=== PATIENT | female | born 1940 | race Caucasian/White ===

== ENCOUNTER 2018-07-08 18:17 | Observation (INO) ==
--- NOTE | 2018-07-08 18:24 | Emergency Department Note ---
Disposition Clinical Impression: Gastroenteritis, Near syncope Disposition: Admitted As Inpatient Condition: Fair Nausea/Vomiting/Diarrhea HPI - General Chief complaint: ED Nausea/Vomiting/Diarrhea Stated complaint: vomiting Time Seen by Provider: 07/08/18 18:20 Source: patient, EMS Mode of arrival: EMS Limitations: no limitations Nursing Notes Reviewed: Yes Vital Signs Reviewed: Yes - History of Present Illness HPI Narrative: Patient relates she is been feeling sick for about a week. She is been having nausea vomiting with current dry heaving about 15 times today. She states symptoms seem to be worse at night. She has had decreased oral intake but has been trying take down some water. She states she has even thrown up with chicken soup. With the increased nausea tonight she states she is been sleeping poorly and has generalized fatigue. She is getting weakness and dizziness with standing and walking with her walker. She did have diarrhea but none in 2 days. She has not been passing blood or mucus. She denies abdominal pain other than soreness with vomiting and nausea. She has not had ill exposures. She denies cough or chest pain. She states she has chronic dyspnea with COPD but it is not increased. She is concerned that she has not been able to take her home medicines and with this her blood pressure is up a little bit. She is here for some of the symptoms on Tuesday, received IV fluids and has not been able to control her symptoms with "Reglan" at home. She was prescribed Phenergan on Tuesday. She did see her primary care provider for nausea this past Tuesday. She had the squad go to her house earlier today and decided not to come into the hospital. She called again and has been transported due to the persistence of symptoms. Pt Subjective Complaint: nausea, vomiting, diarrhea Onset (ago): week(s) (1) Description of emesis: food contents, bilious, other (Dry heaving) Number of episodes of emesis: 15 (Today) Description of Diarrhea: water (Resolved 2 days ago) Associated Abdominal Pain: Yes (Abdominal wall sore) If pain, Location of pain: diffuse Severity: mild, moderate Quality: aching Consistency: intermittent Improves with: nothing Worsens with: eating, vomiting Associated symptoms: Reports: loss of appetite, malaise, nausea/vomiting, shortness of breath (Normal with COPD), weakness. Denies: myalgias, chest pain, cough, diaphoresis, fever/chills, headaches, rash, dysuria, syncope - Related Data Home Medications Medication Instructions Recorded Confirmed Albuterol Sulfate [Proair Hfa] 2 puff IH Q4-6H PRN 07/14/15 07/08/18 Ezetimibe [Zetia] 10 mg PO DAILY 07/14/15 07/08/18 Lansoprazole [Prevacid] 30 mg PO BID 07/14/15 07/08/18 Pregabalin [Lyrica] 300 mg PO BID 07/14/15 07/08/18 Cyclobenzaprine HCl 5 mg PO TID PRN 01/29/16 07/08/18 Ergocalciferol (VITAMIN D2) 50,000 unit PO WE 01/29/16 07/08/18 [Vitamin D2 (50,000 UNIT)] Ipratropium/Albuterol Sulfate 1 puff IH BID 02/02/16 07/08/18 [Combivent Respimat Inhal [place]] Lisinopril [Zestril] 20 mg PO DAILY 05/05/16 07/08/18 Magnesium Oxide [Magnesium] 500 mg PO DAILY 05/05/16 07/08/18 Potassium Chloride [Klor-Con 20 meq PO DAILY 05/05/16 07/08/18 Sprinkle] Aspirin Enteric Coated [Aspirin EC] 81 mg PO DAILY 09/13/16 07/08/18 Dicyclomine [Bentyl] 20 mg PO QID PRN 09/13/16 07/08/18 Fluticasone Propionate Nasal 50 mcg NS DAILY 09/13/16 07/08/18 [Flonase] HYDROcodone/Acet 7.5/325 mg [[place] 1 tab PO TID PRN 09/13/16 07/08/18 7.5-325 mg] Oxygen 2 l NS AD 09/13/16 07/08/18 Ranitidine HCl [Acid Otm Consultant] 75 mg PO BID 07/05/18 07/08/18 Sucralfate [Carafate] 1 gm PO QIDAC 07/05/18 07/08/18 Previous Rx's Medication Instructions Recorded LORazepam [Ativan] 1 mg PO TID #6 tablet 09/12/16 OxyCODONE/APAP 5/325 [Percocet 1 - 2 tab PO Q6HR PRN #40 tablet 09/12/16 5/325 MG] Benzonatate [Tessalon] 100 mg PO TID #20 capsule 05/08/17 Guaifenesin [Mucinex] 100 mg PO Q4H #20 gran.pack 05/08/17 Allergies Allergy/AdvReac Type Severity Reaction Status Date / Time methotrexate AdvReac Vomiting Verified 07/08/18 18:28 morphine AdvReac Vomiting Verified 07/08/18 18:28 ondansetron AdvReac Vomiting Verified 07/08/18 18:28 [From Zofran (as hydrochloride)] All systems ED: reviewed and negative except as stated. Past Medical History - Past Medical History Attestation: Yes The following information was validated with the patient. Source: patient, old records reviewed, obtained from family, nursing notes reviewed Medical history: Reports: arthritis, CHF, COPD, GERD, hyperlipidemia, hypertension, osteoporosis, RA, renal disease Surgical history: Reports: appendectomy, colectomy, colostomy, herniorrhaphy, hysterectomy, orthopedic, other (Lumbar) Psychiatric history: Reports: no psych history - Social History Smoking Status: Former smoker Smokeless Tobacco Status: No Alcohol use: Reports: none Drug use: Reports: none Physical Exam - General Limitations: no limitations General appearance: alert, in no apparent distress - Head Head exam: atraumatic - Eye Eye exam: Present: normal appearance, PERRL, EOMI. Absent: conjunctival injection - ENT ENT exam: normal exam, normal oropharynx, mucous membranes moist - Neck Neck exam: Present: normal inspection, full ROM, trachea midline. Absent: tenderness, meningismus, lymphadenopathy - Chest Chest inspection: Present: normal inspection, symmetric chest wall rise - Respiratory Respiratory exam: Present: normal lung sounds bilaterally. Absent: respiratory distress, wheezes, prolonged expiratory phase - Cardiovascular Cardiovascular exam: Present: regular rate, normal rhythm, tachycardia, normal heart sounds - Abdominal Exam Abdominal exam: Present: soft, normal bowel sounds. Absent: distention, guarding, rebound, rigidity, hyperactive bowel sounds, Villagran's sign, tenderness at McBurney's Point Abdominal tenderness: Present: diffuse, mild - Extremities Exam Extremities exam: Present: normal inspection, full ROM, normal capillary refill. Absent: tenderness, pedal edema, calf tenderness - Expanded Lower Extremity Exam Neurovascular/Tendon exam: Present: normal capillary refill Gait: not tested/not observed - Back Exam Back exam: Present: normal inspection, full ROM. Absent: tenderness, CVA tenderness (R), CVA tenderness (L) - Neurological Exam Neurological exam: Present: alert, oriented X3 - Psychiatric Psychiatric exam: Present: normal affect, anxious. Absent: agitated - Skin Skin exam: Present: warm, dry, intact, normal color. Absent: diaphoresis, pallor Course Course Narrative: Patient was evaluated immediately upon arrival. She is been written to receive IV fluids and, given allergy to Zofran, a dose of haloperidol and Benadryl IV for her severe nausea. Baseline laboratory has been ordered and she is advised that I would review her previous record prior to other testing. 1907: All testing is discussed with the patient and Dr. Dorsey. She is coordinated with verbal orders obtained for inpatient observation and hydration. Vital Signs Temperature 97.2 F L 07/08/18 18:18 Pulse Rate 105 07/08/18 18:18 Respiratory Rate 17 07/08/18 18:18 Blood Pressure 171/101 07/08/18 18:18 O2 Sat by Pulse Oximetry 93 07/08/18 18:18 Temperature 97.2 F L 07/08/18 18:18 Pulse Rate 105 07/08/18 19:11 Respiratory Rate 17 07/08/18 19:11 Blood Pressure 158/101 07/08/18 19:11 O2 Sat by Pulse Oximetry 94 07/08/18 19:11 Oxygen Delivery Oxygen Delivery Room Air Nausea/Vomiting/Diarrhea - Differential Diagnosis Likely: food poisoning, gastroenteritis, dehydration, bowel obstruction - Medical Records Medical records reviewed: Yes I reviewed the patient's medical records. Urinalysis, CBC and basic chemistry panel were normal on Tuesday. - Lab Data Lab results reviewed: Yes I reviewed the patient's lab results. Result diagrams: 07/08/18 18:36 07/08/18 18:36 Lab Results 07/08/18 07/08/18 07/08/18 Range/Units 18:36 18:36 18:36 WBC 8.6 D (4.3-11.1) K/mcL RBC 3.94 (3.82-4.97) M/mcL Hgb 12.5 (11.5-15.4) g/dL Hct 37.7 (35.3-44.9) % MCV 95.7 (83.0-100.0) fL MCH 31.7 (28.0-33.3) pg MCHC 33.2 (31.6-35.5) g/dL RDW 13.0 (11.5-14.5) % Plt Count 185 (140-400) K/mcL MPV 11.2 (9.4-12.4) fL Immature Gran % 0.2 (0-4) % Seg Neutrophils % 59.7 % Lymphocytes % 24.4 % Monocytes % 13.8 % Eosinophils % 1.3 % Basophils % 0.6 % Neutrophils # 5.1 (1.6-8.9) K/mcL Lymphocytes # 2.1 (0.6-4.6) K/mcL Monocytes # 1.2 (0.0-1.3) K/mcL Eosinophils # 0.1 (0.0-0.6) K/mcL Basophils # 0.1 (0.0-0.2) K/mcL Sodium 136 (136-145) mEq/L Potassium 3.8 (3.5-5.1) mEq/L Chloride 99 (98-107) mEq/L Carbon Dioxide 19 L (23-29) mEq/L BUN 16 (8-23) mg/dL Creatinine 0.97 (0.60-1.20) mg/dL Est GFR ( Amer) > 60 (> 60) Est GFR (Non-Af Amer) 56 L (> 60) BUN/Creatinine Ratio 16 (6-26) Glucose 86 (70-105) mg/dL Calculated Osmolality 282 (280-300) Calcium 9.6 (8.6-10.3) mg/dL Magnesium 1.6 (1.6-2.6) mg/dL Total Bilirubin 0.5 (0.3-1.0) mg/dL Direct Bilirubin 0.1 (0.0-0.2) mg/dL Indirect Bilirubin 0.4 (0.0-1.2) mg/dL AST 24 (13-39) Units/L ALT 16 (7-52) Units/L Alkaline Phosphatase 72 (34-104) Units/L Serum Total Protein 7.2 (6.4-8.9) g/dL Albumin 4.1 (3.5-5.7) g/dL Globulin 3.1 (2.4-3.5) g/dL Albumin/Globulin Ratio 1.3 (1.1-2.2) Amylase 41 (29-103) Units/L Lipase 83 H (11-82) Units/L - Radiology Data Radiology results reviewed: Yes I reviewed the patient's radiology results. Three-view abdominal series is performed. This is not demonstrate evidence for pulmonary blood trace, effusion or mass. Abdominal bowel gas pattern is nonspecific without abnormal calcification or obstruction. This is on my interpretation. Impressions Chest/Abdomen X-ray 07/08/18 18:32 IMPRESSION: No acute pulmonary process. Nonspecific bowel gas pattern with mild gaseous distention of colon. D/ / 07/08/2018 19:20:44 Alex Moore MD / zayra Interpreting Provider: Alex Moore MD
[2018-07-08] MEDS ORDERED: 0.9 % Sodium Chloride 1,000 ML IVC ONE (18:25)
[2018-07-08] MEDS ORDERED: Haloperidol Lactate 5 MG/ML VIAL IVP ONE (18:25)
[2018-07-08] MEDS ORDERED: 0.9 % Sodium Chloride 1,000 ML IVC SCH (18:30)
[2018-07-08 18:44] LABS: Basophils # 0.1 K/mcL (0.0-0.2); Basophils % 0.6 %; Eosinophils # 0.1 K/mcL (0.0-0.6); Eosinophils % 1.3 %; Hematocrit 37.7 % (35.3-44.9); Hemoglobin 12.5 g/dL (11.5-15.4); Immature Granulocytes % 0.2 % (0-4); Lymphocytes # 2.1 K/mcL (0.6-4.6); Lymphocytes % 24.4 %; Mean Corpuscular HGB Conc 33.2 g/dL (31.6-35.5); Mean Corpuscular Hemoglobin 31.7 pg (28.0-33.3); Mean Corpuscular Volume 95.7 fL (83.0-100.0); Mean Platelet Volume 11.2 fL (9.4-12.4); Monocytes # 1.2 K/mcL (0.0-1.3); Monocytes % 13.8 %; Neutrophils # 5.1 K/mcL (1.6-8.9); Platelet Count 185 K/mcL (140-400); Red Blood Count 3.94 M/mcL (3.82-4.97); Segmented Neutrophils % 59.7 %
[2018-07-08 19:03] LABS: Alanine Aminotransferase 16 Units/L (7-52); Albumin 4.1 g/dL (3.5-5.7); Albumin/Globulin Ratio 1.3 (1.1-2.2); Alkaline Phosphatase 72 Units/L (34-104); Amylase 41 Units/L (29-103); Aspartate Amino Transferase 24 Units/L (13-39); BUN/Creatinine Ratio 16 (6-26); Bilirubin,Direct 0.1 mg/dL (0.0-0.2); Bilirubin,Indirect 0.4 mg/dL (0.0-1.2); Bilirubin,Total 0.5 mg/dL (0.3-1.0); Blood Urea Nitrogen 16 mg/dL (8-23); Calcium 9.6 mg/dL (8.6-10.3); Carbon Dioxide 19 mEq/L (23-29); Chloride 99 mEq/L (98-107); Globulin 3.1 g/dL (2.4-3.5); Glucose 86 mg/dL (70-105); Lipase 83 Units/L (11-82); Osmolality,Calculated 282 (280-300); Potassium 3.8 mEq/L (3.5-5.1); Sodium 136 mEq/L (136-145); Total Protein 7.2 g/dL (6.4-8.9); eGFR For Non-African Americans 56 (> 60)
[2018-07-08] MEDS ORDERED: Albuterol 2.5 MG/3 ML NEBULIZER IH PRN (19:34)
[2018-07-08] MEDS ORDERED: Mag Hydrox/Al Hydrox/Simeth 30 ML UDC PO PRN (19:34)
[2018-07-08] MEDS ORDERED: MOM Conc 10 ML UD.LIQ PO PRN (19:34)
[2018-07-08] MEDS ORDERED: Naloxone 0.4 MG/ML INJ IVP PRN (19:34)
[2018-07-08] MEDS ORDERED: Haloperidol Lactate 5 MG/ML VIAL IVP PRN (19:34)
[2018-07-08] MEDS ORDERED: *HR* HYDROcodone/Acet 7.5/325 mg TABLET PO PRN (19:34)
[2018-07-08] MEDS: Pregabalin 75 MG CAPSULE PO SCH (20:21)
[2018-07-08] MEDS: *HR* LORazepam 1 MG TABLET PO SCH (20:21)
[2018-07-08] MEDS: 0.9 % Sodium Chloride 1,000 ML IVC SCH (20:21)
[2018-07-08] MEDS: Ipratropium/Albuterol Neb 3 ML IH SCH (22:56)
[2018-07-09] MEDS: Ipratropium/Albuterol Neb 3 ML IH SCH ×4 (03:48→23:10)
[2018-07-09] MEDS: 0.9 % Sodium Chloride 1,000 ML IVC SCH ×4 (05:31→22:07)
[2018-07-09] MEDS: (Ezetimibe [Zetia] 10 MG) PO SCH (09:59)
[2018-07-09] MEDS: Lisinopril 20 MG TABLET PO SCH (09:59)
[2018-07-09] MEDS: Pregabalin 75 MG CAPSULE PO SCH ×2 (09:59→22:06)
[2018-07-09] MEDS: *HR* LORazepam 1 MG TABLET PO SCH (09:59)
[2018-07-09] MEDS: Magnesium Oxide 400 MG TABLET PO SCH (09:59)
[2018-07-09] MEDS: Aspirin Enteric Coated 81 MG Tablet PO SCH (09:59)
--- NOTE | 2018-07-09 13:18 | Internal Med History&Physical ---
Date of Encounter: 07/09/18 Time of Encounter: 12:40 Assessment and Plan (1) Gastroenteritis Current visit: Yes Status: Acute IV fluids have been started. Further workup will be done as needed. (2) Altered mental status Current visit: Yes Status: Acute Nurse reports patient has had mental status change in the past hour. Blood sugar was 72 MG/DL. ABG will be ordered. Head CT will be done if needed and further workup as indicated. Qualifiers: Coma depth: Francine coma 9-12 Coma timing: unspecified coma timing Qualified Code(s): R40.2420 - Franc[place] coma scale score 9-12, unspecified time Internal Medicine - H&P: HPI Chief complaint: Vomiting and diarrhea Admitted From: Emergency Dept Plans for Post Hospital Care: Home History of present illness: Ms. Post is a 77 year old female who came to emergency room complaining of not feeling well for approximately one week. She reported numerous episodes of vomiting at home. The emergency room report also states she had diarrhea. She was admitted to [facility] floor for ongoing care needs. She is very lethargic at the present time and cannot offer any additional history. Past Med Surg Social Fam HX - Past Medical History Medical history: arthritis, CHF, COPD, GERD, hyperlipidemia, hypertension, osteoporosis, RA, renal disease Additional medical history: renal isufficiency Psychiatric history: no psych history - Past Surgical History Surgical History: appendectomy, colectomy, colostomy, herniorrhaphy, hysterectomy, orthopedic, other Additional surgical history: back surgery, bowel surgery, left arm surgery, right knee replaced - Social History Smoking Status: Former smoker Smokeless Tobacco Status: No Alcohol use: none Drug use: none - Family History Sister Living Status: Hx Family Cancer: Yes Mother Hx Family Neuromuscular Disorders: Yes (Parkinson's) Hx Family Neurologic Disorders: Yes (alzheimer's) Internal Medicine - H&P: Meds Albuterol Sulfate [Proair Hfa] 2 puff IH Q4-6H PRN 07/14/15 [History] Ezetimibe [Zetia] 10 mg PO DAILY 07/14/15 [History] Lansoprazole [Prevacid] 30 mg PO BID 07/14/15 [History] Pregabalin [Lyrica] 300 mg PO BID 07/14/15 [History] Cyclobenzaprine HCl 5 mg PO TID PRN 01/29/16 [History] Ergocalciferol (VITAMIN D2) [Vitamin D2 (50,000 UNIT)] 50,000 unit PO WE 01/29/16 [History] Ipratropium/Albuterol Sulfate [Combivent Respimat Inhal [place]] 1 puff IH BID 02/02/16 [History] Lisinopril [Zestril] 20 mg PO DAILY 05/05/16 [History] Magnesium Oxide [Magnesium] 500 mg PO DAILY 05/05/16 [History] Potassium Chloride [Klor-Con Sprinkle] 20 meq PO DAILY 05/05/16 [History] LORazepam [Ativan] 1 mg PO TID #6 tablet 09/12/16 [Rx] OxyCODONE/APAP 5/325 [Percocet 5/325 MG] 1 - 2 tab PO Q6HR PRN #40 tablet [Rx] Aspirin Enteric Coated [Aspirin EC] 81 mg PO DAILY 09/13/16 [History] Dicyclomine [Bentyl] 20 mg PO QID PRN 09/13/16 [History] Fluticasone Propionate Nasal [Flonase] 50 mcg NS DAILY 09/13/16 [History] HYDROcodone/Acet 7.5/325 mg [[place] 7.5-325 mg] 1 tab PO TID PRN 09/13/16 [History] Oxygen 2 l NS AD 09/13/16 [History] Benzonatate [Tessalon] 100 mg PO TID #20 capsule 05/08/17 [Rx] Guaifenesin [Mucinex] 100 mg PO Q4H #20 gran.pack 05/08/17 [Rx] Ranitidine HCl [Acid Auto Body Service Mechanic] 75 mg PO BID 07/05/18 [History] Sucralfate [Carafate] 1 gm PO QIDAC 07/05/18 [History] Allergy/AdvReac Type Severity Reaction Status Date / Time methotrexate AdvReac Vomiting Verified 07/08/18 18:28 morphine AdvReac Vomiting Verified 07/08/18 18:28 ondansetron AdvReac Vomiting Verified 07/08/18 18:28 [From Zofran (as hydrochloride)] All Systems PM: A 10-system review of systems was performed and is negative for pertinent findi ngs except as documented above in the HPI. Review of systems: Review of systems from her April 2016 [facility] hospitalization were reviewed and revised as below. The patient is unable to give any additional information at this time due to significant lethargy. Gen.: Her weight has increased from 80.558 kg on 04/26/2016 to present weight of 86.353 kg. Cardiovascular: She has history of hypertension and CHF. She denies HI DVT or pulmonary embolus Respiratory: She smoked from age [age]. She states there was a 3 year interval she did not smoke. She is been diagnosed with COPD/emphysema. She wears oxygen at home when necessary. She has not been tested for sleep apnea. He had a chest CT January 2016. She follows with a journeyman electrician. GI: She has a diagnosis of irritable bowel syndrome. She denies disorders of her liver or exocrine pancreas. She had a colon tear in 2011 requiring temporary colostomy. She had re-anastomosis and has had no new problems. She did have complications postoperatively of having an asystolic episode requiring CPR. She states she was in a coma for 2 weeks following the surgery. : She has chronic kidney disease but does not follow with a lan support specialist. She denies other kidney or bladder disorders. Neurologic: She denies large distribution strokes. She has had tremors and was seen by neurologist during May 2016 [facility] hospitalization. She was discharged on Ativan 1 mg 3 times a day and continues to take this. Endocrine: She has hyperlipidemia but denies diabetes or thyroid disease Hematology/oncology: She denies blood disorders or cancers. She has had anemia in the past Psychiatric: She has anxiety but denies depression or other mental health issues Musk skeletal: She has DJD, rheumatoid arthritis, and fibromyalgia. She had right TKR 09/13/2016 at [facility]. - Constitutional Vitals: Temp Pulse Resp BP Pulse Ox 98.6 F 87 14 137/84 91 07/09/18 12:02 07/09/18 12:02 07/09/18 12:02 07/09/18 12:02 07/09/18 12:02 Exam: Gen.: She is a well-developed well-nourished female lying in bed who is very lethargic. She awakens for a few seconds but is not conversational. She follows a few commands. HEENT: Head is atraumatic and normocephalic. Eyes: EOMI. There is no scleral icterus. Mouth: Mucosa is moist. Neck: There is no thyromegaly or adenopathy noted. Heart: Regular without murmurs gallops or ectopics Lungs: No wheezes or crackles are heard. Abdomen: Soft and nontender. No masses or guarding are noted. Extremities: There is no cyanosis edema or clubbing noted. Dorsalis pedis and posterior tibial pulses are trace palpable bilaterally. Neurologic: Mental status: She is lethargic. She awakens for a few seconds and follows a few commands but is non-conversational. Cranial nerves: Her gaze is conjugate. She does not move her face or eyes spontaneously. Motor: She has equal arm tone on passive range of motion. She briefly keeps her arms in the area after they are passively lifted. She does not withdraw to painful stimulation to her toes. No further neurologic testing is attempted. Skin: Warm and dry Internal Med - H&P Results - Labs CBC & Chem 7: 07/08/18 18:36 07/08/18 18:36 Labs: Short CBC 07/08/18 Range/Units 18:36 WBC 8.6 D (4.3-11.1) K/mcL Hgb 12.5 (11.5-15.4) g/dL Hct 37.7 (35.3-44.9) % Plt Count 185 (140-400) K/mcL Neutrophils # 5.1 (1.6-8.9) K/mcL BMP 07/08/18 18:36 Sodium 136 Potassium 3.8 Chloride 99 Carbon Dioxide 19 L BUN 16 Creatinine 0.97 Glucose 86 Calcium 9.6 Liver Function 07/08/18 Range/Units 18:36 Total Bilirubin 0.5 (0.3-1.0) mg/dL Direct Bilirubin 0.1 (0.0-0.2) mg/dL AST 24 (13-39) Units/L ALT 16 (7-52) Units/L Alkaline Phosphatase 72 (34-104) Units/L Albumin 4.1 (3.5-5.7) g/dL - Impressions ITS Impressions Chest/Abdomen X-ray 07/08/18 18:32 IMPRESSION: No acute pulmonary process. Nonspecific bowel gas pattern with mild gaseous distention of colon. D/ / 07/08/2018 19:20:44 Alex Moore MD / zayra Interpreting Provider: Alex Moore MD
[2018-07-09 13:39] LABS: ABG Base Excess -4 mEq/L (-2 to 3); ABG HCO3 22 mEq/L (21-27); ABG Oxygen Saturation 97 % (95-98); ABG PCO2 41 mmHg (35-45); ABG PH 7.33 pH Units (7.32-7.45); ABG PO2 99 mmHg (85-104); ABG TCO2 23 mEq/L (20-26)
[2018-07-10] MEDS: Ipratropium/Albuterol Neb 3 ML IH SCH ×2 (04:35→09:20)
[2018-07-10 06:10] LABS: Basophils % 0.6 %; Eosinophils # 0.1 K/mcL (0.0-0.6); Eosinophils % 1.1 %; Hematocrit 30.7 % (35.3-44.9); Hemoglobin 9.9 g/dL (11.5-15.4); Immature Granulocytes % 0.2 % (0-4); Lymphocytes # 1.7 K/mcL (0.6-4.6); Lymphocytes % 27.1 %; Mean Corpuscular HGB Conc 32.2 g/dL (31.6-35.5); Mean Corpuscular Hemoglobin 31.8 pg (28.0-33.3); Mean Corpuscular Volume 98.7 fL (83.0-100.0); Mean Platelet Volume 11.4 fL (9.4-12.4); Monocytes % 15.9 %; Neutrophils # 3.4 K/mcL (1.6-8.9); Platelet Count 135 K/mcL (140-400); Red Blood Count 3.11 M/mcL (3.82-4.97); Red Cell Distribution Width 13.4 % (11.5-14.5); Segmented Neutrophils % 55.1 %
[2018-07-10 06:28] LABS: BUN/Creatinine Ratio 16 (6-26); Blood Urea Nitrogen 14 mg/dL (8-23); Calcium 8.5 mg/dL (8.6-10.3); Carbon Dioxide 21 mEq/L (23-29); Chloride 107 mEq/L (98-107); Glucose 123 mg/dL (70-105); Osmolality,Calculated 284 (280-300); Potassium 3.8 mEq/L (3.5-5.1); Sodium 136 mEq/L (136-145); eGFR For Non-African Americans > 60 (> 60)
[2018-07-10 07:14] VITALS: BP 139/81
[2018-07-10] MEDS: Pregabalin 75 MG CAPSULE PO SCH (09:38)
[2018-07-10] MEDS: Aspirin Enteric Coated 81 MG Tablet PO SCH (09:38)
[2018-07-10] MEDS: Magnesium Oxide 400 MG TABLET PO SCH (09:39)
[2018-07-10] MEDS: (Ezetimibe [Zetia] 10 MG) PO SCH (09:39)
[2018-07-10] MEDS: Lisinopril 20 MG TABLET PO SCH (09:40)
--- NOTE | 2018-07-10 10:23 | Discharge Summary ---
Date of Encounter: 07/10/18 Time of Encounter: 10:15 - Discharge Diagnosis (1) Gastroenteritis Priority: Primary Status: Resolved (2) Altered mental status Priority: Secondary Status: Resolved Qualifiers: Coma depth: Francine coma 9-12 Coma timing: unspecified coma timing Qualified Code(s): R40.2420 - [place] coma scale score 9-12, unspecified time Hospital course: Ms. Post is a 77 year old female who came to emergency room complaining of not feeling well for approximately one week. She reported numerous episodes of vomiting at home. The emergency room report also states she had diarrhea. She was admitted to [facility] for ongoing care needs. Initial orders were written by the emergency room physician. I saw her on July 09 and performed the history and physical. She was given IV fluids. Lorazepam was held because of altered mental status. Her mental status had returned to baseline when I saw her on July 10. She had no further gastroenteritis symptoms and felt stable for discharge home. Follow-up labs on July 10 showed hemoglobin decrease to 9.9. Aspirin dose will be decreased to every other day. Her PCP can monitor labs. She will follow with her PCP Cortney Calderon CNP within 1 week - Time Spent with Patient Total time spent providing and/or coordinating discharge services: - Discharge Medications Prescriptions: New Aspirin Enteric Coated [Aspirin EC] 81 mg PO Q48H tablet.dr Ayala Pregabalin [Lyrica] 300 mg PO BID Lansoprazole [Prevacid] 30 mg PO BID Ezetimibe [Zetia] 10 mg PO DAILY Albuterol Sulfate [Proair Hfa] 2 puff IH Q4-6H PRN PRN Reason: Shortness Of Breath Ergocalciferol (VITAMIN D2) [Vitamin D2 (50,000 UNIT)] 50,000 unit PO WE Cyclobenzaprine HCl 5 mg PO TID PRN PRN Reason: Muscle Spasm Ipratropium/Albuterol Sulfate [Combivent Respimat Inhal [place]] 1 puff IH BID Lisinopril [Zestril] 20 mg PO DAILY Potassium Chloride [Klor-Con Sprinkle] 20 meq PO DAILY Magnesium Oxide [Magnesium] 500 mg PO DAILY LORazepam [Ativan] 1 mg PO TID #6 tablet OxyCODONE/APAP 5/325 [Percocet 5/325 MG] 1 - 2 tab PO Q6HR PRN #40 tablet PRN Reason: Pain Oxygen 2 l NS AD Dicyclomine [Bentyl] 20 mg PO QID PRN PRN Reason: abdominal pain HYDROcodone/Acet 7.5/325 mg [[place] 7.5-325 mg] 1 tab PO TID PRN PRN Reason: Pain Fluticasone Propionate Nasal [Flonase] 50 mcg NS DAILY Benzonatate [Tessalon] 100 mg PO TID #20 capsule Guaifenesin [Mucinex] 100 mg PO Q4H #20 gran.pack Sucralfate [Carafate] 1 gm PO QIDAC Ranitidine HCl [Acid Customer Support Technician] 75 mg PO BID Discontinued Aspirin Enteric Coated [Aspirin EC] 81 mg PO DAILY Home Medications: Albuterol Sulfate [Proair Hfa] 2 puff IH Q4-6H PRN 07/14/15 [History] Ezetimibe [Zetia] 10 mg PO DAILY 07/14/15 [History] Lansoprazole [Prevacid] 30 mg PO BID 07/14/15 [History] Pregabalin [Lyrica] 300 mg PO BID 07/14/15 [History] Cyclobenzaprine HCl 5 mg PO TID PRN 01/29/16 [History] Ergocalciferol (VITAMIN D2) [Vitamin D2 (50,000 UNIT)] 50,000 unit PO WE 01/29/16 [History] Ipratropium/Albuterol Sulfate [Combivent Respimat Inhal [place]] 1 puff IH BID 02/02/16 [History] Lisinopril [Zestril] 20 mg PO DAILY 05/05/16 [History] Magnesium Oxide [Magnesium] 500 mg PO DAILY 05/05/16 [History] Potassium Chloride [Klor-Con Sprinkle] 20 meq PO DAILY 05/05/16 [History] LORazepam [Ativan] 1 mg PO TID #6 tablet 09/12/16 [Rx] OxyCODONE/APAP 5/325 [Percocet 5/325 MG] 1 - 2 tab PO Q6HR PRN #40 tablet 09/12/16 [Rx] Dicyclomine [Bentyl] 20 mg PO QID PRN 09/13/16 [History] Fluticasone Propionate Nasal [Flonase] 50 mcg NS DAILY 09/13/16 [History] HYDROcodone/Acet 7.5/325 mg [[place] 7.5-325 mg] 1 tab PO TID PRN 09/13/16 [History] Oxygen 2 l NS AD 09/13/16 [History] Benzonatate [Tessalon] 100 mg PO TID #20 capsule 05/08/17 [Rx] Guaifenesin [Mucinex] 100 mg PO Q4H #20 gran.pack 05/08/17 [Rx] Ranitidine HCl [Acid Customer Support Technician] 75 mg PO BID 07/05/18 [History] Sucralfate [Carafate] 1 gm PO QIDAC 07/05/18 [History] Aspirin Enteric Coated [Aspirin EC] 81 mg PO Q48H tablet. 07/10/18 [Rx] Allergies/Adverse Reactions: Allergy/AdvReac Type Severity Reaction Status Date / Time methotrexate AdvReac Vomiting Verified 07/08/18 18:28 morphine AdvReac Vomiting Verified 07/08/18 18:28 ondansetron AdvReac Vomiting Verified 07/08/18 18:28 [From Zofran (as hydrochloride)] Date of admission: 07/08/18 19:29 Primary care physician: Richard Duong MD Consults: 07/08/18 20:06 Consult to Nutrition [CONS] Routine Comment: Only scored d/t n/v Consulting Provider: NUTRITION Reason for Dietary Consult: MST Score Consult to Pastoral Services [CONS] Routine Comment: - Constitutional Vitals: Temp Pulse Resp BP Pulse Ox 97.9 F 84 14 139/81 98 07/10/18 06:00 07/10/18 06:00 07/10/18 09:20 07/10/18 06:00 07/10/18 09:20 - Patient Status Disposition: Home, Self-Care Condition: Fair - Discharge Instructions Follow Up With: Richard Duong MD [Primary Care Provider] - 1 week - Diet and Activity Activity: resume usual activities as tolerated Diet: advance to your usual diet - VTE Documentation of Mechanical Device: Graduated compression elastic hosiery
== END 2018-07-10 11:25 | disposition home or self-care (01) ==
LOC: EMEROOPIK 18:17 → INPPIK 18:17
PROVIDERS: ADMIT Internal Medicine; ATTEND Internal Medicine

== ENCOUNTER 2020-09-01 11:17 | Inpatient (IN) ==
[2020-09-01] MEDS ORDERED: *HR* HYDROcodone/Acet 5/325 mg TABLET PO ONE (11:23)
[2020-09-01 11:48] LABS: Hemoglobin 10.2 g/dL (11.5-15.4); Mean Corpuscular HGB Conc 31.9 g/dL (31.6-35.5); Mean Corpuscular Hemoglobin 32.8 pg (28.0-33.3); Mean Corpuscular Volume 102.9 fL (83.0-100.0); Mean Platelet Volume 9.7 fL (9.4-12.4); Platelet Count 252 K/mcL (140-400); Red Blood Count 3.11 M/mcL (3.82-4.97); Red Cell Distribution Width 12.8 % (11.5-14.5); White Blood Count 13.3 K/mcL (4.3-11.1)
[2020-09-01 12:07] LABS: BUN/Creatinine Ratio 15 (6-26); Blood Urea Nitrogen 16 mg/dL (8-23); Calcium 9.5 mg/dL (8.6-10.3); Carbon Dioxide 32 mEq/L (23-29); Chloride 96 mEq/L (98-107); Glucose 109 mg/dL (70-105); Osmolality,Calculated 280 (280-300); Potassium 4.5 mEq/L (3.5-5.1); Sodium 134 mEq/L (136-145); eGFR For African Americans > 60 (> 60); eGFR For Non-African Americans 50 (> 60)
[2020-09-01] MEDS ORDERED: Acetaminophen 325 MG TABLET PO PRN (14:13)
[2020-09-01] MEDS ORDERED: Naloxone 0.4 MG/ML INJ IVP PRN (14:13)
[2020-09-01 15:01] LABS: Bilirubin,Urine Negative (Negative); Blood,Urine Negative (Negative); Clarity,Urine Clear (Clear); Color,Urine Yellow (Yellow); Glucose,Urine (UA) Normal (Normal); Ketones,Urine Negative (Negative); Leukocyte Esterase,Urine Negative (Negative); Nitrite,Urine Negative (Negative); Protein,Urine Negative (Neg-Trace); Urobilinogen,Urine Normal (Normal)
[2020-09-01] MEDS ORDERED: Fluticasone Propionate Nasal 50 MCG/SPRAY BOTTLE NS PRN (15:29)
[2020-09-01] MEDS: rOPINIRole 0.25 MG TABLET PO SCH (17:28)
[2020-09-01] MEDS: tiZANidine 4 MG TABLET PO SCH (20:01)
[2020-09-01] MEDS: Sennosides/Docusate Sodium TABLET PO SCH (22:14)
[2020-09-02] MEDS: Ondansetron ODT 4 MG TAB.RAPDIS SL PRN ×2 (03:47→15:50)
[2020-09-02 06:47] LABS: Hematocrit 28.8 % (35.3-44.9); Hemoglobin 9.3 g/dL (11.5-15.4); Mean Corpuscular HGB Conc 32.3 g/dL (31.6-35.5); Mean Corpuscular Hemoglobin 32.9 pg (28.0-33.3); Mean Corpuscular Volume 101.8 fL (83.0-100.0); Platelet Count 217 K/mcL (140-400); Red Blood Count 2.83 M/mcL (3.82-4.97); Red Cell Distribution Width 12.7 % (11.5-14.5); White Blood Count 8.7 K/mcL (4.3-11.1)
[2020-09-02 07:07] LABS: BUN/Creatinine Ratio 16 (6-26); Blood Urea Nitrogen 16 mg/dL (8-23); Calcium 8.9 mg/dL (8.6-10.3); Carbon Dioxide 31 mEq/L (23-29); Chloride 96 mEq/L (98-107); Glucose 107 mg/dL (70-105); Magnesium 1.6 mg/dL (1.6-2.6); Osmolality,Calculated 280 (280-300); Potassium 4.1 mEq/L (3.5-5.1); Sodium 134 mEq/L (136-145); eGFR For African Americans > 60 (> 60); eGFR For Non-African Americans 56 (> 60)
[2020-09-02] MEDS: LINZESS 290 MG PO SCH (08:01)
[2020-09-02] MEDS: BuPROPion XL (24 HR) 150 MG TABLET PO SCH (08:08)
[2020-09-02] MEDS: Metoprolol XL (24 HR) Succ 25 MG TAB.ER.24H PO SCH (08:08)
[2020-09-02] MEDS: Isosorbide MONOnitrate (24 HR) 30 MG TAB.ER.24H PO SCH (08:08)
[2020-09-02] MEDS: Loratadine 10 MG TABLET PO SCH (08:08)
[2020-09-02] MEDS: lisinopriL 5 MG TABLET PO SCH (08:08)
[2020-09-02] MEDS: Cyanocobalamin (B-12) 1,000 MCG TABLET PO SCH (08:08)
[2020-09-02] MEDS: Sennosides/Docusate Sodium TABLET PO SCH ×2 (08:08→20:05)
[2020-09-02] MEDS: Aspirin Enteric Coated 81 MG Tablet PO SCH (08:08)
[2020-09-02] MEDS: Budesonide/Formoterol 160/4.5 1 PUFF INH IH SCH ×2 (09:43→22:12)
[2020-09-02] MEDS ORDERED: Bisacodyl 10 MG RECTAL SUPPOSITORY RC ONE ×2 (11:01→15:45)
[2020-09-02] MEDS: rOPINIRole 0.25 MG TABLET PO SCH (17:11)
[2020-09-02] MEDS: tiZANidine 4 MG TABLET PO SCH (20:05)
[2020-09-03] MEDS ORDERED: *HR* Enoxaparin 40 MG/0.4 ML SYRINGE SQ SCH (06:00)
[2020-09-03 06:48] VITALS: BP 123/60
[2020-09-03 07:53] LABS: Basophils % 0.4 %; Eosinophils # 0.1 K/mcL (0.0-0.6); Eosinophils % 0.9 %; Immature Granulocytes % 0.5 % (0-4); Lymphocytes # 1.8 K/mcL (0.6-4.6); Lymphocytes % 22.3 %; Mean Corpuscular HGB Conc 32.1 g/dL (31.6-35.5); Mean Corpuscular Hemoglobin 32.7 pg (28.0-33.3); Mean Corpuscular Volume 101.8 fL (83.0-100.0); Mean Platelet Volume 10.1 fL (9.4-12.4); Monocytes # 1.1 K/mcL (0.0-1.3); Monocytes % 13.7 %; Platelet Count 220 K/mcL (140-400); Red Blood Count 2.75 M/mcL (3.82-4.97); Red Cell Distribution Width 12.9 % (11.5-14.5); Segmented Neutrophils % 62.2 %
[2020-09-03 08:05] LABS: Calcium 9.2 mg/dL (8.6-10.3); Potassium 4.2 mEq/L (3.5-5.1)
[2020-09-03] MEDS: Budesonide/Formoterol 160/4.5 1 PUFF INH IH SCH (08:18)
[2020-09-03] MEDS: Aspirin Enteric Coated 81 MG Tablet PO SCH (09:27)
[2020-09-03] MEDS: Sennosides/Docusate Sodium TABLET PO SCH (09:27)
[2020-09-03] MEDS: lisinopriL 5 MG TABLET PO SCH (09:27)
[2020-09-03] MEDS: Isosorbide MONOnitrate (24 HR) 30 MG TAB.ER.24H PO SCH (09:27)
[2020-09-03] MEDS: Cyanocobalamin (B-12) 1,000 MCG TABLET PO SCH (09:34)
[2020-09-03] MEDS: BuPROPion XL (24 HR) 150 MG TABLET PO SCH (09:34)
[2020-09-03] MEDS: Metoprolol XL (24 HR) Succ 25 MG TAB.ER.24H PO SCH (09:36)
[2020-09-03] MEDS: LINZESS 290 MG PO SCH (09:36)
[2020-09-03] MEDS: Loratadine 10 MG TABLET PO SCH (09:39)
== END 2020-09-03 15:00 | disposition home or self-care (01) | DRG 554 ==
LOC: EMEROOPIK 11:17 → INPPIK 11:17
PROVIDERS: ADMIT Family Medicine; ATTEND Family Medicine